=== PATIENT | female | born 1945 | race Caucasian/White ===

== ENCOUNTER 2019-11-06 10:41 | Outpatient (CLI) | payer MEDICARE, SELFPAY ==
--- NOTE | 2019-11-06 10:44 | DI.RAD.S_ITS ---
PROCEDURE: PAIN L/S TRANSFORAMINAL INJECT INDICATIONS: SPINAL STENOSIS FINDINGS: Fluoroscopic spot filming was performed to verify placement of spinal needles at the L4-L5 level(s), as labeled on the films. Appropriate location(s) of the needle tip(s) was confirmed by injection of iodinated contrast. IMPRESSION: Fluoroscopy for pain management. Dictated by: Venita Jiang M.D. on 11/06/2019 at 12:19 Approved by: Venita Jiang M.D. on 11/06/2019 at 12:19
[2019-11-06 11:07] VITALS: BP 149/84; PULSE 68; RESP 16; TEMP 36; O2SAT 97
[2019-11-06 11:53] VITALS: BP 186/90; PULSE 75; RESP 16; O2SAT 100
[2019-11-06] MEDS: MIDAZOLAM 5 MG/5 ML VIAL IV (11:55)
[2019-11-06 11:58] VITALS: BP 144/66; PULSE 65; RESP 16; O2SAT 100
[2019-11-06] MEDS: BUPIVACAINE 0.25% (PF) VIAL 2 ML INJ (12:00)
[2019-11-06] MEDS: BETAMETHASONE 30 MG/5 ML MDV 6 MG INJ (12:00)
[2019-11-06] MEDS: DEXAMETHASONE 10 MG/ML VIAL 20 MG INJ (12:00)
[2019-11-06 12:01] VITALS: BP 129/77; PULSE 67; RESP 16; O2SAT 100
--- NOTE | 2019-11-06 12:02 | PC.NURSE ---
ASSISTING PT OFF TABLE AND TRANSPORTING TO POST PROC AREA IN STABLE CONDITION. PASSING RN CARE OF PT OFF TO ALEXANDRA Moss RN.
[2019-11-06 12:06] VITALS: BP 148/86; PULSE 71; RESP 16; O2SAT 99
--- NOTE | 2019-11-06 12:19 | P.PCN_ITS ---
Procedures Date/Time Date of procedure: 11/06/19 Time of procedure: 12:19 General Procedure description: PREOP DIAGNOSIS 1. FORMAINAL STENOSIS WITH LE SYMPTOMS POST OP DIAGNOSIS 1. FORMAINAL STENOSIS WITH LE SYMPTOMS PROCEDURES 1. FLUOROSCOPICALLY GUIDED CONTRAST CONTROLLED TRANSFORAMINAL EPIDURAL STEROID INJECTION - RIGHT L4/5 TFESI PHYSICIAN: Warren Diaz DO INDICATIONS: Maria Elena is referred by for treatment of Foraminal Stenosis with Right LE Symptoms FINDINGS Foraminal Nerve Root Compression secondary to disc disease and facet hypertrophy DESCRIPTION OF PROCEDURE: Following review of allergy and review of potential side effects and complications, including, but not necessarily limited to, infection, allergic reaction, local tissue breakdown, stroke, temporary or permanent nerve injury, paralysis, and possible , the patient indicated that the patient understood and agreed to proceed. An informed consent document was signed by the patient, witnessed by a nurse, and placed in the patient's chart. Additionally, other treatment options including medications, modalities, and physical therapy were reviewed with the patient. After review of previous anaesthesic history and IV conscious sedation the patient was deemed safe to proceed with todays procedure with IV conscious sedation as ASA class II designation. Safety time-out was performed to confirm patient ID, procedure to be performed and site of procedure. IV sedation was accomplished with 3mg of Versed was administered by the RN after DO order, titrated to patient comfort during the course of the procedure while the patient remained responsive to all verbal commands In the prone position following sterile prep and drape of the lumbar region, the Right L4/5 posterior neuroforamen was identified fluoroscopically. The skin was anesthetized via a 25-gauge 1.5-inch needle with 1% lidocaine solution. At this point, a 25-gauge 3.5-inch spinal needle was atraumatically introduced and advanced under fluoroscopic guidance through the posterior right L4/5 neuroforamen to approximately the anterior aspect of the canal. Depth was confirmed on lateral view. Following negative aspiration, contrast was not utilized due to patient allergy. Subsequently, a test dose of 1.5cc of 1% lidocaine solution was administered and patient was observed for two minutes for signs or symptoms of complications, including abdominal pain, shortness of breath, bilateral upper or lower extremity weakness, nausea and vomiting, prior to steroid injection. At this point, a total of 3cc or 20mg of dexamethasone and 6mg of betamethasone was injected without incident. Radiological data, including multiple fluoroscopic views of the lumbosacral spine, reveal a spinal needle at the right L4/5 posterior neuroforamen. The procedure tolerated the procedure well without signs or symptoms of complications prior to transfer to the recovery area continued monitoring without incident.The patient was then transferred to the recovery area where th ey were observed for an appropriate time after the injection. The patient reported a VAS score of 7 prior to the procedure and a post- procedure VAS of 0. Total Fluoroscopy Time: 8 seconds Total Conscious Sedation Time: 24min POST OP INSTRUCTIONS The patient was provided a Pain Log to continue to record their response to the target-specific procedure prior to follow-up visit with their referring physician. Additionally, specific post-injection care instructions and a contact number to our office were provided if concerns arise regarding possible complications associated with the procedure are suspected. Warren Diaz, Complications: none
--- NOTE | 2019-11-06 12:21 | PC.NURSE ---
1210: Received patient post procedure, awake, alert, and pleasant. VSS upon arrival. Transferred with min assist to chair.
== END 2019-11-06 12:30 | disposition home or self-care (01) ==
LOC: RAD 10:44
PROVIDERS: Referring Provider Physical Medicine & Rehabilitation; Visit Provider Physical Medicine & Rehabilitation
DX: M48.061 Spinal stenosis, lumbar region without neurogenic claudication (principal); M51.16 Intervertebral disc disorders with radiculopathy, lumbar region
CPT/HCPCS: 64483; 99152; J0702; J1100; J2250

== ENCOUNTER 2020-02-04 08:52 | Day surgery (SDC) | payer MEDICARE, SELFPAY ==
--- NOTE | 2020-02-01 15:37 | P.OP_ITS ---
Procedure & Clinicians Procedure: Preoperative diagnoses: 1. Left complex advanced ignificant nuclear sclerotic and cortical cataract. 2. Multiple allergies including iodine and dilating drops. Preoperative testing with dilating drops showed no reaction. She has contrast iodine allergy and skin testing was done prior to surgery. She has a fluorescein and allergy as well. 3. Anxiety. 4. 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 Postoperative diagnoses: 1. Complex cataract removed by phacoemulsification with placement of posterior chamber intraocular lens. Capsular dye needed. Procedure: Phacoemulsification with posterior chamber intraocular lens implant Surgeon: Martha Fleming MD Complications: None Specimen: None Implant: ZCBOO+21.0 Blood loss: None Anesthesia: Retrobulbar with monitored standby Description of procedure: Patient presents with a complaint of decreased visi on due to cataract which is affecting activities of daily living. Her surgery was canceled previously due to the chronic virus epidemic. It is now advanced even further and she does desire surgery. 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 She is aware of the extra risk of surgery during the Covid 19 pandemic and wishes to proceed with surgery as planned. 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 No reaction occurred and she was taken to the operating room. She was also dilated without reaction. No fluorescein was needed for this procedure but Visudyne capsular dye was used without reaction..She is tested Covid 19-prior to the procedure. The patient wants surgery to improve vision. The patient was taken to the operating room and given IV sedation. A retrobulb ar block consisting of 6 cc of 2% xylocaine without epinephrine mixed half and half with 0.5% Marcaine with 1 cc of hyaluronidase added is placed between the medial and lateral 1/3 of the inferior orbital rim. The eye is manually massaged for 30 sec, prepped using Betadine solution, and draped in the usual sterile fashion. Temporal approach was made, a 1 mm side-port incision was made 90? from the proposed clear corneal incision position. Phenylephrine 1.5% mixed with 1% xylocaine 0.2 cc was placed into the anterior chamber. An airbubble was placed and Visudyne capsular dye was placed on the anterior capsule.The extra dye was irrigated out .Viscoat followed by Healon was then placed. A 2.6 mm clear incision with a 2.6 mm blade was placed. A 360 degree capsulorrhexis style capsulotomy was then performed with a cystitome needle on a Healon greatly aided by the dye.. Hydrodelineation and hydrodissection were performed. The phacoemulsification unit is introduced, and sculpting notice used to groove the central lens. It is then removed in chopping mode. Epi nucleus is removed with epinuclear mode and irrigation aspiration was used to remove the peripheral cortex. The posterior capsule is polished. The intraocular lens is selected, inspected, power confirmed, and placed in the posterior chamber. The wound was stromally hydrated and tested for leaks, there was none and it was left sutureless. Vigamox 0.1 cc was placed into the anterior chamber. Kenalog 0.2 cc was placed in the superior subconjunctival space. A drop of antibiotic and was placed and the eye was patched and shielded. The patient was stable and returned to the recovery room in excellent condition. She has been told she should be evaluated to improve her blood pressure as it is above the normal range here and [id number]. Dictated by: Martha Fleming MD Copy to: [facility] Same procedure as scheduled: Yes
--- NOTE | 2020-02-01 15:37 | PM.PREOP ---
Pre-operative Note COVID-19 COVID-19 status: Negative Result date/Date tested (Pos, Neg/Pending): 02/01/20 Interval Note History & Physical reviewed/Exam performed by Physician: Yes Changes to H&P: No H&P completed within 30 days and has changed as indicated here:: No reaction to pre-operatve dilating drops or to betadine patch test. Able to proceed with the case as per normal protocol.
[2020-02-04] MEDS: CATARACT EYE COMPOUND (10 DROPS/SYRINGE) 3 DROPS EYE-OP (10:27)
[2020-02-04] MEDS: PROPARACAINE 0.5% OPHTH SOL 2 DROPS EYE-OP (10:27)
[2020-02-04 10:33] VITALS: BP 192/93; PULSE 78; RESP 16; TEMP 36.5; O2SAT 99; BMI 30.2
--- NOTE | 2020-02-04 11:13 | SUR.OPER ---
Supine on eye stretcher, head on extension cradle secured with tape. Arms tucked at sides with blanket. Pillow under knees.
[2020-02-04] MEDS: TRYPAN BLUE 0.5 ML SYRINGE INJ (11:25)
[2020-02-04] MEDS: PHENYLEPHRINE/LIDOCAINE VIAL (OR) 0.2 ML EYE-OP (11:25)
[2020-02-04] MEDS: MOXIFLOXACIN INJ 5 MG/ML VIAL EYE-OP (11:26)
[2020-02-04] MEDS: LIDOCAINE 2% 4 ML, BUPIVACAINE 0.5% (PF) 4 ML, HYALURONIDASE 150 UNIT INJ (11:26)
[2020-02-04] MEDS: HYALURONATE SODIUM 10 MG/ML SYRINGE INJ (11:29)
[2020-02-04] MEDS: ERYTHROMYCIN OPHTH 1 GM OINT 1 APPLIC EYE-LEFT (11:29)
[2020-02-04] MEDS: CHONDROIDTIN/SOD HYALURONATE 1.05 ML SYRINGE INTRAOCULA (11:29)
[2020-02-04] MEDS: TRIAMCINOLONE 50 MG/5 ML VIAL INJ (11:30)
[2020-02-04] MEDS: BALANCED SALT IRRIG SOLN NO.2 500 ML, EPINEPHrine 1 MG IRR (11:30)
[2020-02-04 12:00] VITALS: BP 162/89; PULSE 73; RESP 16; TEMP 36.6; O2SAT 97
== END 2020-02-04 12:20 | disposition home or self-care (01) ==
LOC: OR 08:55
PROVIDERS: Referring Provider Ophthalmology; Visit Provider Ophthalmology
PROC: (CPT 66982; principal; 2020-02-04 10:45)
DX: H25.812 Combined forms of age-related cataract, left eye (principal); F41.9 Anxiety disorder, unspecified; H35.061 Retinal vasculitis, right eye
CPT/HCPCS: 66982; J0171; J2250; J2704; J3301; J3470

== ENCOUNTER → 2020-02-15 09:30 | Outpatient (CLI) | payer MEDICARE, SELFPAY ==
[2020-02-16 08:44] LABS: COVID19 Sendout NOT DETECTED (Not Detect)
== END ==
PROVIDERS: Visit Provider Physician Assistant
DX: Z01.818 Encounter for other preprocedural examination (principal)
CPT/HCPCS: 87635

== ENCOUNTER 2020-02-18 07:50 | Day surgery (SDC) | payer MEDICARE, SELFPAY ==
--- NOTE | 2020-02-17 19:17 | PM.PREOP ---
Pre-operative Note COVID-19 COVID-19 status: Negative Interval Note History & Physical reviewed/Exam performed by Physician: Yes Changes to H&P: No H&P completed within 30 days and has changed as indicated here:: No reactions to any medications used last visit including betadine and Visudyne dyes.
--- NOTE | 2020-02-18 07:24 | PM.OP.1 ---
Operative Date/Time/Diagnoses Date of procedure: 02/18/20 Time of procedure: 09:45 Procedure & Clinicians Procedure: Preoperative diagnoses: 1. Right nuclear sclerotic and cortical cataract. 2. Anxiety. 3. Multiple reported allergies with no reaction last surgery. Postoperative diagnoses: 1. Cataract removed by phacoemulsification with placement of posterior chamber intraocular lens. Procedure: Phacoemulsification with posterior chamber intraocular lens implant Surgeon: Martha Fleming MD Complications: None Specimen: None Implant: ZCBOO+20.0 Blood loss: None Anesthesia: Retrobulbar with monitored standby Description of procedure: Patient presents with a complaint of decreased vision due to cataract which is affecting activities of daily living. The patient wants surgery to improve vision. The patient was taken to the operating room and given IV sedation. A retrobulbar block consisting of 6 cc of 2% xylocaine without epinephrine mixed half and half with 0.5% Marcaine with 1 cc of hyaluronidase added is placed between the medial and lateral 1/3 of the inferior orbital rim. The eye is manually massaged for 30 sec, prepped using Betadine solution, and draped in the usual sterile fashion. Temporal approach was made, a 1 mm side-port incision was made 90? from the proposed clear corneal incision position. Phenylephrine 1.5% mixed with 1% xylocaine 0.2 cc was placed into the anterior chamber. Viscoat followed by Rodrigo was then placed. A 2.6 mm clear incision with a 2.6 mm blade was placed. A 360 degree capsulorrhexis style capsulotomy was then performed with a cystitome needle on a Healon. Hydrodelineation and hydrodissection were performed. The phacoemulsification unit is introduced, and sculpting notice used to groove the central lens. It is then removed in chopping mode. Epi nucleus is removed with epinuclear mode and irrigation aspiration was used to remove the peripheral cortex. The posterior capsule is polished. The intraocular lens is selected, inspected, power confirmed, and placed in the posterior chamber. The wound was stromally hydrated and tested for leaks, there was none and it was left sutureless. Vigamox 0.1 cc was placed into the anterior chamber. Kenalog 0.2 cc was placed in the superior subconjunctival space. A drop of antibiotic and was placed and the eye was patched and shielded. The patient was stable and returned to the recovery room in excellent condition. Dictated by: Martha Fleming MD Copy to: [facility] Same procedure as scheduled: Yes
[2020-02-18] MEDS: PROPARACAINE 0.5% OPHTH SOL 2 DROPS EYE-OP (08:32)
[2020-02-18] MEDS: CATARACT EYE COMPOUND (10 DROPS/SYRINGE) 3 DROPS EYE-OP (08:34)
[2020-02-18 08:35] VITALS: BP 168/86; PULSE 73; RESP 14; TEMP 36.8; O2SAT 100; BMI 30.1
[2020-02-18] MEDS: ERYTHROMYCIN OPHTH 1 GM OINT 1 APPLIC EYE-RIGHT (09:57)
[2020-02-18] MEDS: TRIAMCINOLONE 50 MG/5 ML VIAL INJ (09:57)
[2020-02-18] MEDS: HYALURONATE SODIUM 10 MG/ML SYRINGE INJ (09:58)
[2020-02-18] MEDS: LIDOCAINE 2% 4 ML, BUPIVACAINE 0.5% (PF) 4 ML, HYALURONIDASE 150 UNIT INJ (09:58)
[2020-02-18] MEDS: PHENYLEPHRINE/LIDOCAINE VIAL (OR) 0.2 ML EYE-OP (09:59)
[2020-02-18] MEDS: MOXIFLOXACIN INJ 5 MG/ML VIAL EYE-OP (09:59)
[2020-02-18] MEDS: BALANCED SALT IRRIG SOLN NO.2 500 ML, EPINEPHrine 1 MG IRR (10:00)
[2020-02-18] MEDS: CHONDROIDTIN/SOD HYALURONATE 1.05 ML SYRINGE INTRAOCULA (10:00)
[2020-02-18 10:20] VITALS: BP 150/83; PULSE 73; RESP 14; TEMP 36.2; O2SAT 100
== END 2020-02-18 10:35 | disposition home or self-care (01) ==
LOC: OR 07:52
PROVIDERS: PCP Family Medicine; Referring Provider Family Medicine; Visit Provider Ophthalmology
PROC: (CPT 66984; principal; 2020-02-18 09:45)
DX: H25.811 Combined forms of age-related cataract, right eye (principal); H35.061 Retinal vasculitis, right eye; F41.9 Anxiety disorder, unspecified; T78.40XA Allergy, unspecified, initial encounter
CPT/HCPCS: 66984; J0171; J2250; J2704; J3301; J3470